=== PATIENT | female | born 1965 | race African-American/Black ===

== ENCOUNTER 2024-12-23 21:14 | Emergency (ER) | payer OTHER ==
[~2024-12-23] VITALS: Ht 160 cm; Wt 66.6 kg
[2024-12-23 21:26] VITALS: O2SAT 98
[2024-12-23 21:38] VITALS: BP 121/61; PULSE 84; RESP 12; TEMP 37; O2SAT 98
[2024-12-23] MEDS ORDERED: CEPH500C2 MT (23:25)
[2024-12-23] MEDS ORDERED: IBUP-1455 MT (23:25)
[2024-12-23] MEDS ORDERED: MUPI1OIN4 TP (23:25)
[2024-12-23] MEDS: IBUPROFEN 600MG TABLET PO ONE (23:38)
== END 2024-12-23 23:56 | disposition home or self-care (01) ==
LOC: ER 21:14
DX: L02.412 Cutaneous abscess of left axilla (principal); Z88.2 Allergy status to sulfonamides
CPT/HCPCS: 99283